=== PATIENT | female | born 1985 | race Caucasian/White ===

== ENCOUNTER 2024-03-19 14:07 | Emergency (ER) | payer MEDICAID, OTHER, SELFPAY ==
[2024-03-19] MEDS ORDERED: Sodium Chloride 0.9% 1,000 ML ONE (14:31)
[2024-03-19] MEDS ORDERED: Acetaminophen 500 MG TAB ONE (14:31)
[2024-03-19 14:46] LABS: #Basophils 0.1 thou/uL (0.0-0.2); #Eosinophils 0.1 thou/uL (0.0-0.7); #Lymphocytes 3.8 thou/uL (1.20-3.40); #Neutrophils 9.6 thou/uL (1.40-6.50); %Basophils 0.5 % (0.0-1.0); %Lymphocytes 25.8 % (21.0-51.0); %Monocytes 6.8 % (0.0-10.0); Hematocrit 41.6 % (36.0-47.0); Hemoglobin 13.9 g/dL (12.0-16.0); Mean Corpuscular HGB CONC 33.5 g/dL (32.0-36.0); Mean Corpuscular Hemoglobin 30.5 pg (27.0-31.0); Mean Platelet Volume 7.1 fL (7.4-10.4); Platelet Count 474 10x3/uL (130-400); RBC Distribution Width 10.8 % (11.5-14.5); Red Blood Cell (RBC) Count 4.57 mill/uL (4.20-5.40); White Blood Cell (WBC) Count 14.5 10x3/uL (4.8-10.8)
[2024-03-19 15:07] LABS: ALT (SGPT) 27 U/L (8-55); AST (SGOT) 14 U/L (5-34); Albumin 3.4 g/dL (3.5-5.0); Alkaline Phosphatase 87 U/L (40-110); Anion Gap 15 mmol/L (10-20); BUN (Urea Nitrogen) 8 mg/dL (7.0-18.7); Bilirubin, Total 0.3 mg/dL (0.2-1.2); Calc. Creatinine Clearance 0 mL/min (70-130); Calcium 8.9 mg/dL (7.8-10.44); Carbon Dioxide 24 mmol/L (22-29); Chloride 104 mmol/L (98-107); Estimated GFR 89; Globulin 4.3 g/dL (2.4-3.5); Glucose 136 mg/dL (70-105); Lipase 62 U/L (8-78); Potassium 3.4 mmol/L (3.5-5.1); Protein, Total 7.7 g/dL (6.0-8.3); Sodium 140 mmol/L (136-145)
== END 2024-03-19 16:11 | disposition home or self-care (01) ==
LOC: NAV ERS 14:07
DX: R07.89 Other chest pain (principal); J45.909 Unspecified asthma, uncomplicated; J11.1 Influenza due to unidentified influenza virus with other respiratory manifestations
CPT/HCPCS: 71045; 80053; 83690; 85025; 85379; J7030